=== PATIENT | female | born 1950 | race Caucasian/White ===

== ENCOUNTER 2019-12-12 16:00 | Outpatient (CLI) | payer MEDICARE, OTHER, SELFPAY ==
--- NOTE | ~2019-12-12 | MM_ITS ---
EXAMINATION: MM screening shannan BI w mitesh HISTORY: Screening mammogram TECHNIQUE: Craniocaudal and mediolateral oblique 3-D tomosynthesis images were obtained and synthetic 2-D images were generated. CAD analysis was submitted and interpreted. COMPARISON: 12/04/2018, 10/19/2017, 04/13/2016, 03/20/2015 bilateral digital screening mammogram examinatio ns BREAST PARENCHYMAL COMPOSITION: The breasts are heterogeneously dense, which may obscure small masses . FINDINGS: There is no evidence of suspicious mass, calcification, or architectural distortion to sugg est malignancy in either breast. There has been no suspicious interval change. IMPRESSION: 1. No mammographic evidence of malignancy. 2. Recommend routine screening mammography in one year. BI-RADS Category 1: Negative Reviewed, dictated and finalized at location A. 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
== END 2019-12-12 16:01 | disposition home or self-care (01) ==
LOC: ANHIMG 16:06
PROVIDERS: PCP Family Medicine; Visit Provider Student in an Organized Health Care Education/Training Program
DX: Z12.31 Encounter for screening mammogram for malignant neoplasm of breast (principal)
CPT/HCPCS: 77063; 77067

== ENCOUNTER 2020-11-10 17:02 | Emergency (ER) | payer MEDICARE, OTHER, SELFPAY ==
--- NOTE | 2020-11-10 17:15 | ED.FEMALEGU ---
HPI - Female Genitourinary General Chief complaint: Urogenital-Female Stated complaint: uti Source: patient Limitations: no limitations History of Present Illness HPI Narrative: The patient, a non-smoker/nondrinker, presents with lower urinary tract symptoms. Patient states she has 1/2-week history of urinary frequency, urgency, dysuria which has worsened and include visible hematuria today. No fever, vomiting/diarrhea, low back pain, vaginal discharge, prior surgeries except for ovarian cystectomy. Symptoms are mild most noticeable with micturition, and are like a prior UTI she has had years ago [but not as worse, as she had a day long ED visit for pyelonephritis years ago then]. Related Data Home Medications Medication Instructions Recorded Confirmed aspirin 81 mg tablet,delayed 81 mg PO DAILY 05/07/20 11/10/20 release multivitamin 1 tablet PO DAILY 05/13/20 11/10/20 Allergies Allergy/AdvReac Type Severity Reaction Status Date / Time No Known Allergies Allergy Verified 05/13/20 10:38 Review of Systems Review of Systems: Narrative: The patient has been informed that they may have pre-hypertension or Hypertension based on a BP reading in the department. I recommend that the patient call the primary care provider listed on their discharge instructions or a physician of their choice this week to arrange follow up for further evaluation of possible pre-hypertension or Hypertension General/Constitutional: No weight loss,fever Eyes: N0: Redness,discharge Ears/Nose/Throat: No: Epistaxis,ear discharge Respiratory: Denies: Hemoptysis Gastrointestinal: No Vomiting, Bleeding-rectal Skin: No Lumps, eruption Neurologic: No Focal Weakness,Sz Hematologic: Denies: Petechiae/Purpura Psychiatric: No: Suicida ideationl All Other Systems: Reviewed and Negative [facility] Past Medical History Medical History (Updated 11/10/20 @ 17:39 by Ortiz Negron MD) Anxiety History of vaginal delivery x 2 Hyperlipidemia Surgical History Surgical History (Updated 05/13/20 @ 11:08 by La Lakhani MD) History of dilation and curettage History of endometrial ablation History of hernia surgery Left spigelian hernia repair - 10/2012 Family History Family History Father Acute myocardial infarction Family history of diabetes mellitus in first degree relative Diabetes mellitus Patient's father is , Onset Age: 86 Family history of cardiovascular disease Mother Hypertension Family history of malignant neoplasm of kidney Family history of macular degeneration Family history of kidney disease Social History Social History Smoking status: Former smoker Second hand tobacco smoke exposure: No Smoking end date: 11/13/71 Alcohol intake: current Substance use: never Substance use type: does not use Gender identity (if verbalized by the patient): Female Comments At time of signature, agree with nursing past medical, surgical, social and family history. There is no relevant family history pertinent to the presenting complaint Exam Narrative: Exam Narrative: General Appearance: Well appearing, Conjunctiva clear Ears: External ear normal Nose: Normal nose Mouth/Throat: Normal appearing, supple Respiratory: Airway patent, No respiratory distress Cardiovascular: RRR Abdomen: Soft, Non-tender, No massess, No organomegaly (no rebound/ surgical signs), Hyperactive bowel sounds Musculoskeletal: Full ROM Skin: Warm, Dry Neurological: A&O x3,d, Normal affect Course Vital Signs Vital signs: Vital Signs Temperature 97.6 F 11/10/20 17:17 Pulse Rate 70 11/10/20 17:17 Respiratory Rate 18 11/10/20 17:17 Blood Pressure 185/90 H 11/10/20 17:17 Pulse Oximetry 100 11/10/20 17:17 Temperature 97.6 F 11/10/20 17:17 Pulse Rate 70 11/10/20 17:17 Respirator
[2020-11-10 17:17] VITALS: BP 185/90; PULSE 70; RESP 18; TEMP 36.4; O2SAT 100
[2020-11-10] MEDS: cefTRIAXone 1 GM VIAL 0.5 GM IM (17:30)
== END 2020-11-10 17:55 | disposition home or self-care (01) ==
PROVIDERS: Emergency Provider Emergency Medicine; PCP Family Medicine
DX: N30.01 Acute cystitis with hematuria (principal); Z87.891 Personal history of nicotine dependence; E78.5 Hyperlipidemia, unspecified; Z79.82 Long term (current) use of aspirin
CPT/HCPCS: 81003; 87077; 87086; 87088; 87186; 96372; 99213; G0463; J0696

== ENCOUNTER 2020-12-05 10:01 | Outpatient (CLI) | payer MEDICARE, OTHER, SELFPAY | END 2020-12-05 10:02 | disposition home or self-care (01) | PROVIDERS: PCP Family Medicine; Visit Provider Nurse Practitioner | DX: R19.7 Diarrhea, unspecified (principal) | CPT/HCPCS: 87045; 87046; 87427 ==

== ENCOUNTER → 2021-01-05 02:56 | Outpatient (CLI) | payer MEDICARE, OTHER, SELFPAY ==
[2021-01-05 20:35] LABS: SARS-CoV-2 RNA PCR Negative
== END ==
PROVIDERS: PCP Family Medicine; Visit Provider Internal Medicine Gastroenterology
DX: Z01.812 Encounter for preprocedural laboratory examination (principal); Z20.822 Contact with and (suspected) exposure to COVID-19
CPT/HCPCS: C9803; U0003; U0005

== ENCOUNTER 2021-01-08 01:04 | Day surgery (SDC) | payer MEDICARE, OTHER, SELFPAY ==
[2021-01-04 10:47] VITALS: BMI 24.3
--- NOTE | 2021-01-07 09:51 | WPDANESEPPF ---
Anes - Initial Pre Proc Eval Procedure: Operation Date: 01/08/21 12:30 Proposed Procedures p Colonoscopy - Kiran Denton MD Date/Time: 01/07/21 09:51 Surgeon: Kiran Denton MD Pre Op Diagnosis: C-Diff, Diarrhea Patient Data Age: 70 Gender: F Height: 1.61 m Weight: 63.3 kg Allergies Allergy/AdvReac Type Severity Reaction Status Date / Time No Known Allergies Allergy Verified 01/04/21 10:42 Home Medications Medication Instructions Recorded Confirmed Type aspirin 81 mg tablet,delayed 81 mg PO DAILY 05/07/20 01/04/21 History release multivitamin 1 tablet PO DAILY 05/13/20 01/04/21 History simvastatin 20 mg tablet 20 mg PO DAILY #90 tablet 07/21/20 01/04/21 Rx lactobacillus combination no.8 6,000 mmu cells PO DAILY 01/04/21 01/04/21 History [Adult Probiotic] sodium,potassium,mag sulfates 17.5 See Rx Instructions PO .COMPLEX 01/04/21 01/04/21 Rx gram-3.13 gram-1.6 gram oral soln #354 ml vancomycin 125 mg capsule 125 mg PO Q6H 10 Days #40 cap 01/04/21 01/04/21 Rx Patient hx anesthesia problems: none Family hx anesthesia problems: none PMFSH Past Medical History Medical History Anxiety History of vaginal delivery x 2 Hyperlipidemia Surgical History Surgical History History of dilation and curettage History of endometrial ablation History of hernia surgery Left spigelian hernia repair - 10/2012 Family History Family History Father Acute myocardial infarction Family history of diabetes mellitus in first degree relative Diabetes mellitus Patient's father is , Onset Age: 86 Family history of cardiovascular disease Mother Hypertension Family history of malignant neoplasm of kidney Family history of macular degeneration Family history of kidney disease Social History Social History Smoking packs per day: 0.5 Smoking cigarettes per day: 10.0 Years smoked: 1 Smoking pack-years: 0.50 Smoking status: Former smoker Second hand tobacco smoke exposure: No Smoking end date: 11/13/71 Alcohol intake: former Drinks per week: 7 Alcohol use details: NONE SINCE 11/08/2020 Substance use: never Substance use type: does not use Living arrangements: with family Gender identity (if verbalized by the patient): Female Spiritual care concerns: No Anes - Eval Final PreProcedure Day of Procedure 01/07/21 09:51 Patient weight: normal Heart: regular rate and rhythm Lungs: clear to auscultation and normal air movement Airway: Mallampati scale class II Neurological: alert and oriented Last oral intake: >/= 8 hours ASA classification: II Emergent: no Anesthetic plan: proceed Anesthesia type and monitoring: general GIVS and standard monitoring Informed Consent: The patient's anesthetic plan and its attendant risks and benefits were discussed with the patient/family/POA. Questions were solicited and answers provided to the satisfaction of the patient/family/POA.
[2021-01-08 11:44] VITALS: BP 136/83; PULSE 71; RESP 16; TEMP 36.6; O2SAT 99
[2021-01-08] MEDS: LACTATED RINGERS 1,000 ML 150 ML IV CONT (11:52)
--- NOTE | 2021-01-08 12:17 | PM.HPGS ---
History of Present Illness History of Present Illness Consent: Risks, benefits, and alternatives have been discussed and questions answered. Patient agrees to proceed with procedure. 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 Last colonoscopy 10 years ago. Review of Systems Constitutional: Constitutional: Denies headache(s) and Denies weakness Eyes: Eyes: Denies blurry vision ENT: Reports Normal hearing present, Denies headache(s) and Denies neck pain Cardiovascular: Cardiovascular: Denies chest pain and Denies dyspnea Respiratory: Respiratory: Denies dyspnea Gastrointestinal: Gastrointestinal: Reports no additional gastrointestinal complaints Genitourinary: Genitourinary: Denies dysuria Musculoskeletal: Musculoskeletal: Denies neck pain Integumentary/Breasts: Skin/Breast: Denies dry skin Neurologic: Reports Normal hearing present, Denies headache(s) and Denies weakness Psychiatric: Psychiatric: Denies anxiety Endocrine: Endocrine: Denies change in body appearance Hematologic/Lymphatic: Hematologic/Lymphatic: Denies easy bleeding Allergic/Immunologic: Allergic/Immunologic: Denies urticaria PMFSH Past Medical History Medical History Anxiety History of vaginal delivery x 2 Hyperlipidemia Surgical History Surgical History History of dilation and curettage History of endometrial ablation History of hernia surgery Left spigelian hernia repair - 10/2012 Family History Family History Father Acute myocardial infarction Family history of diabetes mellitus in first degree relative Diabetes mellitus Patient's father is , Onset Age: 86 Family history of cardiovascular disease Mother Hypertension Family history of malignant neoplasm of kidney Family history of macular degeneration Family history of kidney disease Social History Social History Smoking packs per day: 0.5 Smoking cigarettes per day: 10.0 Years smoked: 1 Smoking pack-years: 0.50 Smoking status: Former smoker Second hand tobacco smoke exposure: No Smoking end date: 11/13/71 Alcohol intake: former Drinks per week: 7 Alcohol use details: NONE SINCE 11/08/2020 Substance use: never Substance use type: does not use Living arrangements: with family Gender identity (if verbalized by the patient): Female Spiritual care concerns: No Meds Home Medications and Allergies Home Medications Medication Instructions Recorded Confirmed Type aspirin 81 mg tablet,delayed 81 mg PO DAILY 05/07/20 01/04/21 History release multivitamin 1 tablet PO DAILY 05/13/20 01/04/21 History simvastatin 20 mg tablet 20 mg PO DAILY #90 tablet 07/21/20 01/04/21 Rx lactobacillus combination no.8 6,000 mmu cells PO DAILY 01/04/21 01/04/21 History [Adult Probiotic] vancomycin 125 mg capsule 125 mg PO Q6H 10 Days #40 cap 01/04/21 01/08/21 Rx Allergies Allergy/AdvReac Type Severity Reaction Status Date / Time No Known Allergies Allergy Verified 01/08/21 11:43 Vital Signs Vital Signs - 24 hr 01/08/21 11:44 Temperature 97.8 F Pulse Rate 71 Respiratory Rate 16 Blood Pressure 136/83 Pulse Oximetry 99 Exam Const: General: comfortable and no acute distress HENMT: General nose exam: Normal nares present Eyes: General: appearance normal, both eyes and all related structures Neck: Neck: no JVD Resp: Auscultation: clear to auscultation bilaterally Cardio: Rate: regular rate Rhythm: regular rhythm GI: Inspection: non-distended GI Palp: Yes Soft to palpation Skin: General skin exam: normal color Neuro: General: gait normal Speech: normal speech Extrem: Gene
[2021-01-08 12:56] VITALS: BP 99/65; PULSE 70; RESP 18; O2SAT 99
[2021-01-08 13:06] VITALS: BP 116/78; PULSE 70; RESP 18; O2SAT 99
[2021-01-08 13:16] VITALS: BP 120/68; PULSE 67; RESP 16; O2SAT 99
== END 2021-01-08 13:30 | disposition home or self-care (01) ==
PROVIDERS: PCP Family Medicine; Visit Provider Internal Medicine Gastroenterology
PROC: 0DJD8ZZ Inspection of Lower Intestinal Tract, Via Natural or Artificial Opening Endoscopic (ICD-10-PCS; CPT 45378; principal; 2021-01-08 12:30)
DX: A49.8 Other bacterial infections of unspecified site (principal); K64.8 Other hemorrhoids; R19.7 Diarrhea, unspecified
CPT/HCPCS: 45378; J7120

== ENCOUNTER 2021-01-14 09:56 | Outpatient (CLI) | payer MEDICARE, OTHER, SELFPAY ==
--- NOTE | ~2021-01-14 | MM_ITS ---
EXAMINATION: MM screening shannan BI w mitesh HISTORY: Screening TECHNIQUE: Craniocaudal and mediolateral oblique 3-D tomosynthesis images were obtained and synthetic 2-D images were generated. CAD analysis was submitted and interpreted. COMPARISON: Comparison to multiple prior studies sequentially, with oldest reviewed study dated 06/2015. BREAST PARENCHYMAL COMPOSITION: The breasts are heterogeneously dense, which may obscure small masses . FINDINGS: There is no evidence of suspicious mass, calcification, or architectural distortion to sugg est malignancy in either breast. There has been no suspicious interval change. IMPRESSION: 1. No mammographic evidence of malignancy. 2. Recommend routine screening mammography in one year. BI-RADS Category 1: Negative Reviewed, dictated and finalized at location A. 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
== END 2021-01-14 09:57 | disposition home or self-care (01) ==
PROVIDERS: PCP Family Medicine; Visit Provider Student in an Organized Health Care Education/Training Program
DX: Z12.31 Encounter for screening mammogram for malignant neoplasm of breast (principal)
CPT/HCPCS: 77063; 77067

== ENCOUNTER 2021-01-21 09:59 | Outpatient (CLI) | payer MEDICARE, OTHER, SELFPAY ==
--- NOTE | ~2021-01-21 | DEXA_ITS ---
Bone Density Report Name: Maci Sykes Age: 70 Sex: Female Ethnicity: White Date of : 1950 Indication: postmenopausal; parental hip fracture; Referring Provider: Dinah Martinez Study: Bone densitometry was performed. Exam Date: January 21, 2021 Accession number: [id number] Bone Density: Region BMD T-score Z-score Classification AP Spine (L1, L2, L3) 1.325 2.8 4.9 Normal Femoral Neck (Left) 0.974 1.1 3.0 Normal Total Hip (Left) 1.023 0.7 2.2 Normal Total Hip Bilateral Avg 0.989 0.4 1.9 Normal Femoral Neck (Right) 0.914 0.6 2.4 Normal Total Hip (Right) 0.953 0.1 1.6 Normal World Health Organization criteria for BMD impression classify patients as: Normal (T-score at or above -1.0), Osteopenia (T-score between -1.0 and -2.5), or Osteoporosis (T-score at or below -2.5). 10-year Fracture Risk: FRAX not reported because: All T-scores for Spine Total, Hip Total, Femoral Neck at or above -1.0 Previous Exams: Region Exam Age BMD T-score BMD Change BMD Change Date g/cm2 vs Baseline vs Previous AP Spine(L1, L2, L3) 01/21/2021 70 1.325 2.8 0.067(5.3%)# 0.043(3.3%)* 03/20/2015 64 1.283 2.4 0.024(1.9%)# -0.001(-0.1%)# 07/15/2009 59 1.283 2.4 0.025(2.0%)* 0.025(2.0%)* 02/06/2004 53 1.258 2.2 Total Hip(Left) 01/21/2021 70 1.023 0.7 -0.071(-6.5%)# -0.011(-1.1%) 03/20/2015 64 1.034 0.8 -0.060(-5.5%)# -0.053(-4.9%)# 07/15/2009 59 1.087 1.2 -0.007(-0.6%) -0.007(-0.6%) 02/06/2004 53 1.094 1.2 Total Hip(Right) 01/21/2021 70 0.953 0.1 -0.029(-2.9%)# 0.000(0.0%) 03/20/2015 64 0.952 0.1 -0.029(-3.0%)# -0.044(-4.4%)# 07/15/2009 59 0.997 0.4 0.015(1.5%) 0.015(1.5%) 02/06/2004 53 0.981 0.3 *Denotes significance at 95% confidence level, LSC for AP Spine = 0.022 g/cm2, LSC for Total Hip = 0.027 g/cm2 Clinical Information Provided by Patient: Parent has had a hip fracture Has used the following medications: Vitamin D, Calcium Patient maximum height was 64 Menopause Age: 59 Drinks caffeinated beverages Onset of menses at age 13 Number of children 2 Impression: The patient has normal bone mass. The patient has risk factors, including: parental hip fracture. No significant bone loss was observed. Discussion: BONE DENSITY IS ABOVE THE MINIMUM DESIRABLE LEVEL AT ALL SKELETAL SITES TESTED. This patient?s bone mineral density is above the minimum desirable leve
== END 2021-01-21 10:00 | disposition home or self-care (01) ==
LOC: ANHIMG 10:01
PROVIDERS: PCP Family Medicine; Visit Provider Student in an Organized Health Care Education/Training Program
DX: Z78.0 Asymptomatic menopausal state (principal)
CPT/HCPCS: 77080

== ENCOUNTER 2021-07-21 12:59 | Outpatient (CLI) | payer MEDICARE, OTHER, SELFPAY | END 2021-07-21 13:00 | disposition home or self-care (01) | LOC: ANHAUDIO 13:01 | PROVIDERS: PCP Family Medicine; Visit Provider Nurse Practitioner | DX: H91.90 Unspecified hearing loss, unspecified ear (principal) | CPT/HCPCS: 92557; 92567 ==

== ENCOUNTER 2022-02-17 14:13 | Outpatient (CLI) | payer MEDICARE, OTHER, SELFPAY ==
--- NOTE | ~2022-02-17 | XR_ITS ---
XR hip LT min 2V DATE: 02/17/2022 14:36 INDICATION: Left hip pain. No injury. TECHNIQUE: AP and lateral views COMPARISON: CT pelvis FINDINGS: Again noted is a partially calcified left sided uterine fibroid. There is degenerative change at the pubic symphysis and sacroiliac joints. There is moderate joint space narrowing and prominent spurring at the left hip consistent with modera tely severe left hip osteoarthritis, with similar exchange suggested on the limited visualization of the right hip. No fracture, dislocation, avascular necrosis or bone destruction of the left hip is detected. IMPRESSION: Moderately severe bilateral hip osteoarthritis Reviewed, dictated and finalized at location A.
== END 2022-02-17 14:14 | disposition home or self-care (01) ==
PROVIDERS: PCP Nurse Practitioner; Visit Provider Nurse Practitioner
DX: M16.0 Bilateral primary osteoarthritis of hip (principal)
CPT/HCPCS: 73502

== ENCOUNTER 2022-05-25 11:00 | Outpatient (RCR) | payer MEDICARE, OTHER, SELFPAY ==
--- NOTE | 2022-05-04 14:42 | PTOPEVAL ---
PHYSICAL THERAPY EVALUATION AND PLAN OF CARE E Thank you for referring Maci Sykes to [facility].? The patient was evaluated for left hip pain. She was provided with HEP. Will follow up in 3 weeks. Please review, sign, date and return this plan of care JEANNE. I agree with and certify that the following plan of care is medically necessary. Referring Physician Date Attending Provider: Jade Hernández NP Diagnosis left hip and knee pain Onset 11/2021 Subjective Information States an initial symptoms in Query Text:As Reported By Patient/ the left knee when walking. Family She would wear a brace sleeve and that helped. Then she started to get some soreness in the left hip. States about 90% of the time the hip does not bother her. When she has pain she takes Aleve but otherwise does not alter how she moves or what she does during the day. She is very active in walking, gardening, basic conditioning. Self Report Pain Assessment Left Hip(s) Reported Pain Level 0 Greatest Pain Intensity 4 Patient Lower Extremity Range of Motion General Lower Extremity Range of Motion Gross Lower Extremity Range of Motion generally well maintained hip Comments internal rotation; bilateral VIKTOR are severely limited Lower Extremity Muscle Strength Testing Hip Strength Left Hip Flexion Strength 4+ Good + Hip Extension Strength 3- Fair - Hip Abduction Strength 3 Fair Right Hip Flexion Strength 4- Good - Hip Extension Strength 3 Fair Hip Abduction Strength 4- Good - Knee Strength Bilateral Knee Flexion Strength 4+ Good + Knee Extension Strength 4+ Good + Muscle Length Testing Zane Test Shortened Muscles Short (R) Iliopsoas,Short (L) Iliopsoas,Short (R) Rectus Femoris,Short (L) Rectus Femoris Piriformis w/Hip Flexion >90 Degrees (R) Severe Tightness,(L) Severe Tightness Palpation significant muscle tightness to left glutes Other Gait Observations mild antalgia with decreased left hip extension in stance phase PT Clinical Summary Maci is a 71 yo female presenting to outpatient physical therapy with mild and
--- NOTE | 2022-05-25 11:40 | PTOPEVAL ---
PHYSICAL THERAPY DISCHARGE NOTE Thank you for referring Maci Sykes to [facility]. Please review, sign, date and return this plan of care JEANNE. I agree with and certify that the following plan of care is medically necessary. Referring Physician Date Attending Provider: Jade Hernández NP Diagnosis left hip and knee pain Onset 11/2021 Subjective Information States an initial symptoms in Query Text:As Reported By Patient/ the left knee when walking. Family She would wear a brace sleeve and that helped. Then she started to get some soreness in the left hip. States about 90% of the time the hip does not bother her. When she has pain she takes Aleve but otherwise does not alter how she moves or what she does during the day. She is very active in walking, gardening, basic conditioning. Self Report Pain Assessment Left Hip(s) Reported Pain Level 0 Greatest Pain Intensity 4 Pain Score Pain Score 0: Self Report Interventions Used Interventions Used By Clinicians Exercise,Mobilization Pain Relief Interventions Used By Heat,Medication Patient Lower Extremity Muscle Strength Testing Hip Strength Left Hip Flexion Strength 4+ Good + Hip Extension Strength 3 Fair Hip Abduction Strength 3+ Fair + Right Hip Flexion Strength 4+ Good + Hip Extension Strength 3+ Fair + Hip Abduction Strength 4 Good Knee Strength Bilateral Knee Flexion Strength 5 Normal Knee Extension Strength 5 Normal Muscle Length Testing Muscle Length Testing Zane Test Shortened Muscles Short (R) Iliopsoas,Short (L) Iliopsoas,Short (R) Rectus Femoris,Short (L) Rectus Femoris Piriformis w/Hip Flexion >90 Degrees (R) Moderate Tightness,(L) Moderate Tightness Gait Assessment Gait Pattern Assessment Gait Pattern No Deviations/Normal PT Clinical Summary Maci is a 71 yo female presenting to outpatient physical therapy with mild and stable subacute left hip pain . Maci demonstrates a normal gait pattern today and demonstrates improved hip strength compared to initial
== END 2022-05-26 09:13 | disposition home or self-care (01) ==
LOC: ANHPT 11:00
PROVIDERS: PCP Nurse Practitioner; Visit Provider Nurse Practitioner
DX: M25.562 Pain in left knee (principal); M25.552 Pain in left hip
CPT/HCPCS: 97110; 97112; 97161

== ENCOUNTER 2022-11-09 15:53 | Outpatient (CLI) | payer MEDICARE, OTHER, SELFPAY ==
--- NOTE | ~2022-11-09 | MM_ITS ---
EXAMINATION: MM screening shannan BI w mitesh HISTORY: Screening mammogram TECHNIQUE: Craniocaudal and mediolateral oblique 3-D tomosynthesis images were obtained and synthetic 2-D images were generated. CAD analysis was submitted and interpreted. COMPARISON: 01/2021, 12/12/2019, 12/04/2018 bilateral screening mammogram examinations BREAST PARENCHYMAL COMPOSITION: The breasts are heterogeneously dense, which may obscure small masses . FINDINGS: There is no evidence of suspicious mass, calcification, or architectural distortion to sugg est malignancy in either breast. There has been no suspicious interval change. IMPRESSION: 1. No mammographic evidence of malignancy. 2. Recommend routine screening mammography in one year. BI-RADS Category 1: Negative Reviewed, dictated and finalized at location A. 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
== END 2022-11-09 15:54 | disposition home or self-care (01) ==
LOC: ANHIMG 15:55
PROVIDERS: PCP Family Medicine; Visit Provider Nurse Practitioner
DX: Z12.31 Encounter for screening mammogram for malignant neoplasm of breast (principal)
CPT/HCPCS: 77063; 77067

== ENCOUNTER 2023-01-13 09:40 | Outpatient (CLI) | payer MEDICARE, OTHER, SELFPAY ==
[2023-01-13 10:07] LABS: Basophils Percent Auto 0.5 % (0.2-1.2); Eosinophils Absolute Auto 0.1 K/mm3 (0-0.3); Eosinophils Percent Auto 2.4 % (0-4.4); Hematocrit 43.2 % (37.0-47.0); Hemoglobin 14.5 g/dL (12.0-15.0); Lymphocytes Absolute Auto 1.43 K/mm3 (0.9-3.2); Lymphocytes Percent Auto 34.5 % (18.3-44.2); Mean Corpuscular HGB Conc 33.6 g/dl (32-36); Mean Corpuscular Hemoglobin 32.2 pg (26-34); Mean Platelet Volume 8.7 fl (7.4-10.4); Monocytes Absolute Auto 0.4 K/mm3 (0.1-0.6); Monocytes Percent Auto 9.2 % (2.6-8.5); Neutrophils Absolute Auto 2.2 K/mm3 (1.3-6.7); Neutrophils Percent Auto 53.4 % (45.5-73.1); Platelet Count Result 219 k/mm3 (150-375); Red Cell Distribution Width 12.4 % (11.5-14.5); White Blood Count 4.2 K/mm3 (4.5-10.0)
[2023-01-13 10:21] LABS: Alanine Aminotransferase 15 U/L (6-35); Albumin Level 4.7 g/dL (3.5-5.1); Alkaline Phosphatase 54 U/L (38-126); Anion Gap 4 mmol/L (8-16); Aspartate Amino Transferase 33 U/L (14-36); Bilirubin,Total 0.5 mg/dL (0.2-1.3); Blood Urea Nitrogen 23 mg/dL (7-17); Calcium 9.3 mg/dL (8.4-10.2); Carbon Dioxide 31 mmol/L (22-30); Chloride 101 mmol/L (98-107); Cholesterol 186 mg/dL (0-200); Estimated Glomerular Filt Rate > 60; Glucose 98 mg/dL (65-110); HDL Direct 60 mg/dL; Potassium 4.1 mmol/L (3.4-5.0); Sodium 136 mmol/L (137-145); Triglycerides 99 mg/dL (<150)
[2023-01-13 10:32] LABS: LDL Cholesterol Direct 88 mg/dL
[2023-01-13 11:22] LABS: Vitamin D 25 Hydroxy 48.6 ng/mL
== END 2023-01-13 09:41 | disposition home or self-care (01) ==
PROVIDERS: PCP Family Medicine; Visit Provider Nurse Practitioner
DX: E78.5 Hyperlipidemia, unspecified (principal); E55.9 Vitamin D deficiency, unspecified
CPT/HCPCS: 36415; 80053; 80061; 82306; 85025

== ENCOUNTER 2023-11-09 08:39 | Outpatient (CLI) | payer MEDICARE, OTHER, SELFPAY ==
--- NOTE | ~2023-11-09 | MM_ITS ---
EXAMINATION: MM screening shannan BI w mitesh HISTORY: Screening mammogram TECHNIQUE: Craniocaudal and mediolateral oblique 3-D tomosynthesis images were obtained and synthetic 2-D images were generated. CAD analysis was submitted and interpreted. COMPARISON: 11/09/2022, 01/2021, 12/12/2021 bilateral screening mammogram examinations BREAST PARENCHYMAL COMPOSITION: The breasts are heterogeneously dense, which may obscure small masses . FINDINGS: There is no evidence of suspicious mass, calcification, or architectural distortion to sugg est malignancy in either breast. There has been no suspicious interval change. IMPRESSION: 1. No mammographic evidence of malignancy. 2. Recommend routine screening mammography in one year. BI-RADS Category 1: Negative Reviewed, dictated and finalized at location A. T RECORDER
--- NOTE | ~2023-11-09 | DEXA_ITS ---
Bone Density Report Name: GI ROSA Age: 73 Sex: Female Ethnicity: White Date of : 1950 Indication: postmenopausal; screening for osteoporosis; parental hip fracture; Referring Provider: KENNEDY COX Study: Bone densitometry was performed. Exam Date: November 09, 2023 Accession number: [id number] Bone Density: Region BMD T-score Z-score Classification AP Spine(L1-L4) 1.330 2.6 4.9 Normal Femoral Neck (Left) 0.960 1.0 3.0 Normal Total Hip (Left) 1.009 0.5 2.2 Normal Femoral Neck (Right) 0.846 0.0 2.0 Normal Total Hip (Right) 0.938 0.0 1.7 Normal Total Hip Mean 0.974 0.3 2.0 Normal World Health Organization criteria for BMD impression classify patients as: Normal (T-score at or above -1.0), Osteopenia (T-score between -1.0 and -2.5), or Osteoporosis (T-score at or below -2.5). 10-year Fracture Risk: FRAX not reported because: All T-scores for Spine Total, Hip Total, Femoral Neck at or above -1.0 Clinical Information Provided by Patient: Parent has had a hip fracture Has used the following medications: Vitamin D, Calcium Patient maximum height was 64 Menopause Age: 62 Drinks caffeinated beverages Onset of menses at age 13 Number of children 2 Missed period for more than 6 months in a row Impression: The patient has normal bone mass. The patient has risk factors, including: parental hip fracture. Discussion: BONE DENSITY IS ABOVE THE MINIMUM DESIRABLE LEVEL AT ALL SKELETAL SITES TESTED. This patient?s bone mineral density is above the minimum desirable level (T-score -1.0 or better) at all sites measured. The patient should follow a healthful lifestyle (good nutrition with adequate calcium and vitamin D, and appropriate weight-bearing exercise). Follow-Up: Consider repeating this study in 5 years or sooner if there is some new clinical indication. Reported by: LAURA on 11/09/2023 9:04:00 AM. Reviewed, dictated and finalized at location ANavi CACERES
== END 2023-11-09 08:40 | disposition home or self-care (01) ==
LOC: ANHIMG 08:40
PROVIDERS: PCP Family Medicine; Visit Provider Nurse Practitioner Family
DX: Z12.31 Encounter for screening mammogram for malignant neoplasm of breast (principal); Z78.0 Asymptomatic menopausal state
CPT/HCPCS: 77063; 77067; 77080

== ENCOUNTER 2024-02-02 09:17 | Outpatient (CLI) | payer MEDICARE, OTHER, SELFPAY ==
[2024-02-02 10:13] LABS: Basophils Percent Auto 0.7 % (0.2-1.2); Eosinophils Absolute Auto 0.1 K/mm3 (0-0.3); Eosinophils Percent Auto 2.9 % (0-4.4); Hematocrit 41.8 % (37.0-47.0); Hemoglobin 13.9 g/dL (12.0-15.0); Immature Granulocyte Absolute 0.02 K/mm3 (0.00-0.031); Immature Granulocyte Percent A 0.5 % (0-0.5); Lymphocytes Absolute Auto 1.48 K/mm3 (0.9-3.2); Lymphocytes Percent Auto 35.2 % (18.3-44.2); Mean Corpuscular HGB Conc 33.3 g/dl (32-36); Mean Corpuscular Hemoglobin 31.2 pg (26-34); Mean Corpuscular Volume 93.9 fl (80-100); Mean Platelet Volume 9.1 fl (7.4-10.4); Monocytes Absolute Auto 0.3 K/mm3 (0.1-0.6); Monocytes Percent Auto 7.6 % (2.6-8.5); Neutrophils Absolute Auto 2.2 K/mm3 (1.3-6.7); Neutrophils Percent Auto 53.1 % (45.5-73.1); Platelet Count Result 227 k/mm3 (150-375); Red Blood Count 4.45 M/mm3 (4.2-5.4); Red Cell Distribution Width 12.6 % (11.5-14.5); White Blood Count 4.2 K/mm3 (4.5-10.0)
[2024-02-02 10:22] LABS: Alanine Aminotransferase 13 U/L (6-35); Albumin Level 4.6 g/dL (3.5-5.1); Alkaline Phosphatase 59 U/L (38-126); Anion Gap 4 mmol/L (8-16); Aspartate Amino Transferase 27 U/L (14-36); Bilirubin,Total 0.7 mg/dL (0.2-1.3); Blood Urea Nitrogen 27 mg/dL (7-17); Calcium 9.5 mg/dL (8.4-10.2); Carbon Dioxide 26 mmol/L (22-30); Chloride 107 mmol/L (98-107); Cholesterol 225 mg/dL (0-200); Estimated Glomerular Filt Rate > 60; Glucose 97 mg/dL (65-110); HDL Direct 60 mg/dL; Potassium 3.9 mmol/L (3.4-5.0); Sodium 137 mmol/L (137-145); Triglycerides 107 mg/dL (<150)
[2024-02-02 10:33] LABS: LDL Cholesterol Direct 133 mg/dL
[2024-02-05 07:31] LABS: Vitamin D 1,25 (OH)2 Total 44 pg/mL (18-72); Vitamin D2 1,25 (OH)2 <8 pg/mL; Vitamin D3 1,25 (OH)2 44 pg/mL
== END 2024-02-02 09:18 | disposition home or self-care (01) ==
LOC: ANHLAB 09:20
PROVIDERS: PCP Family Medicine; Visit Provider Nurse Practitioner Family
DX: E55.9 Vitamin D deficiency, unspecified (principal); E78.5 Hyperlipidemia, unspecified
CPT/HCPCS: 36415; 80053; 80061; 82652; 85025

== ENCOUNTER 2025-03-04 09:07 | Outpatient (CLI) | payer MEDICARE, OTHER, SELFPAY ==
[2025-03-04 09:57] LABS: Alanine Aminotransferase 11 U/L (6-35); Albumin Level 4.4 g/dL (3.5-5.1); Alkaline Phosphatase 57 U/L (38-126); Anion Gap 8 mmol/L (4-12); Aspartate Amino Transferase 25 U/L (14-36); Bilirubin,Total 0.6 mg/dL (0.2-1.3); Blood Urea Nitrogen 21 mg/dL (7-17); Calcium 8.9 mg/dL (8.4-10.2); Carbon Dioxide 29 mmol/L (22-30); Chloride 102 mmol/L (98-107); Cholesterol 205 mg/dL (0-200); Estimated Glomerular Filt Rate > 60; Glucose 96 mg/dL (65-110); HDL Direct 58 mg/dL; Potassium 4.1 mmol/L (3.4-5.0); Sodium 139 mmol/L (137-145); Triglycerides 111 mg/dL (<150)
[2025-03-04 10:08] LABS: LDL Cholesterol Direct 97 mg/dL
== END 2025-03-04 09:08 | disposition home or self-care (01) ==
LOC: ANHLAB 09:08
PROVIDERS: PCP Student in an Organized Health Care Education/Training Program; Visit Provider Student in an Organized Health Care Education/Training Program
DX: E78.5 Hyperlipidemia, unspecified (principal)
CPT/HCPCS: 36415; 80053; 80061

== ENCOUNTER 2025-03-04 09:46 | Outpatient (CLI) | payer MEDICARE, OTHER, SELFPAY | END 2025-03-04 09:47 | disposition home or self-care (01) | LOC: ANHAUDIO 09:47 | PROVIDERS: PCP Student in an Organized Health Care Education/Training Program; Visit Provider Student in an Organized Health Care Education/Training Program | DX: H93.13 Tinnitus, bilateral (principal); H91.90 Unspecified hearing loss, unspecified ear | CPT/HCPCS: 92557; 92567 ==

== ENCOUNTER 2025-06-17 11:51 | Outpatient (CLI) | payer MEDICARE, OTHER, SELFPAY ==
--- NOTE | ~2025-06-17 | MM_ITS ---
EXAMINATION: MM screening shannan BI w mitesh HISTORY: Screening TECHNIQUE: Craniocaudal and mediolateral oblique 3-D tomosynthesis images were obtained and synthetic 2-D images were generated. CAD analysis was submitted and interpreted. COMPARISON: Comparison to multiple prior studies sequentially, with oldest reviewed study dated 12/04. BREAST PARENCHYMAL COMPOSITION: The breasts are heterogeneously dense, which may obscure small masses . FINDINGS: There is no evidence of suspicious mass, calcification, or architectural distortion to sug gest malignancy in either breast. IMPRESSION: 1. No mammographic evidence of malignancy. 2. Recommend routine screening mammography in one year. BI-RADS Category 1: Negative Reviewed, dictated and finalized at location B.
--- OUTSIDE RECORDS SUMMARY | 2025-06-17 12:02 | XMS_ITS | Continuity of Care Document ---
Author Name [facility] Organization [facility] Care Team Providers Care [employer] Teacher Name Role Phone [facility] Unavailable Unavailable Medications Combined list of outpatient medications from [facility] of Defense and Veterans Affairs facilities.Medications provided include 1) outpatient medications from the last 15 months, and 2) patient-reported medications. Medication Details Route Status Patient Instructions Prescription Expires Prescription Number Last Dispense Date Ordering Provider Order Date Order Qty Source estradiol 0.1 mg/g vaginal cream [42.5g] See Instruct raymond, # 42.5 g, 3 total refill(s ), Hard Stop Ordered 08/08/2025 5 2024 42.5 Ambulat ory Pharmac y oxyBUTYnin ER 5 mg/24 hour tablet = 1 tab(s), Oral, Daily, # 30 EA, 3 total refill(s ), Hard Stop Oral (given by mouth) Ordered 09/27/2025 5 2024 30.0 Ambulat ory Pharmac y simvastatin 20 mg tablet See Instruct raymond, # 90 EA, 2 total refill(s ), Acute Complet ed 10/30/2023 3 2022 90.0 Ambulat ory Pharmac y simvastatin 20 mg tablet 20 mg, Oral, Daily, # 90 EA, 1 total refill(s ), Hard Stop Oral (given by mouth) Discont inued 11/20/2024 4 2024 90.0 Ambulat ory Pharmac y simvastatin 20 mg tablet 20 mg, Oral, Daily, # 90 EA, 1 total refill(s ), Hard Stop Oral (given by mouth) Discont inued 05/13/2024 4 2023 90.0 Ambulat ory Pharmac y simvastatin 20 mg tablet See Instruct ions, # 90 EA, 3 total refill(s ), Hard Stop Ordered 11/11/2025 5 2024 90.0 Ambulat ory Pharmac y Immunizations Combined list of available immunizations from the Department of Defense and Veterans Affairs facilities. Immunization Series Date Given Administered By Site Reaction Lot Number CVX Code Drug [employer] Operator Status Comments Source influenza, injectable, quadrivalent- pf 2020 zzLef t Arm [id number] [employer]oSmith[employer] ne complet ed influenza , injectabl e, quadrival ent-pf 08/03/21 Given Ambulat ory Pharmac y Influenza, injectable, quadrivalent, preservative free 1 2020 Unknown, Provider [id number] [facility] (SKB) complet ed Influenza , injectabl e, quadrival ent, preservat uriah free DoD COVID Vaccine Moderna 2020 zzL t Arm [id number] complet ed COVID Vaccine Moderna 01/19/21 Given Ambulat ory Pharmac y SARS-COV-2 (COVID-19) vaccine, mRNA, spike protein, LNP, preservative free, 100 mcg or 50 mcg dose 1 2020 Unknown, Provider [id number] Modern[employer] (MOD) complet ed SARS-COV- 2 (COVID-19 ) vaccine, mRNA, spike protein, LNP, preservat uriah free, 100 mcg or 50 mcg dose DoD COVID Vaccine Moderna 2020 zzLef t Arm [id number] complet ed COVID Vaccine Moderna 12/22/20 Given Ambulat ory Pharmac y SARS-COV-2 (COVID-19) vaccine, mRNA, spike protein, LNP, preservative free, 100 mcg or 50 mcg dose 1 2020 Unknown, Provider [id number] Modern[employer] (MOD) complet ed SARS-COV- 2 (COVID-19 ) vaccine, mRNA, spike protein, LNP, preservat uriah free, 100 mcg or 50 mcg dose DoD Influenza vaccine, quadrivalent, adjuvanted 2019 ALUL, () Not Given Influenza vaccine, quadrival ent, adjuvante d DoD zoster vaccine, inactivated 2019 TRANSCR [id number] 187 GlaxoSmithKli ne complet ed zoster vaccine, inactivat ed 12/20/19 Given Ambulat ory Pharmac y zoster recombinant 2019 ALUL, () Not Given zoster recombina nt DoD zoster vaccine recombinant 1 2019 Unknown, Provider 187 [employer] (SKB) complet ed zoster vaccine recombina nt DoD zoster vaccine, inactivated 2018 zzLef t Arm [id number] [employer]oSmithKli ne complet ed zoster vaccine, inactivat ed 08/30/19 Given Ambulat ory Pharmac y zoster vaccine recombinant 1 2018 Unknown, Provider [id number] [employer] (SKB) complet ed zoster vaccine recombina nt DoD pneumococcal 13-valent conjugate (PCV13) 2018 zzLef t Arm [id number] [facility] complet ed pneumococ ladonna 13-valent conjugate (PCV13) 04/19/19 Given Ambulat ory Pharmac y pneumococcal conjugate vaccine, 13 valent 1 2018 Unknown, Provider [id number] [employer] ([facility]) complet ed pneumococ ladonna conjugate vaccine, 13 valent DoD Procedures Combined list of: 1) [facility] not all [place] non-surgical procedures are included; 2) All procedures from the Department of Defense facilities. Procedure Procedure Type Code Date Perfomer Comments Sourc e No data available for this section Ambulatory P harmacy Social History Combined list of available smoking, tobacco, and other social history from Department of Defense and Veterans Affairs facilities. Social History Type Response Date Comment Sourc e This section is an empty social history section. DoD Assessment and Plan Combined list of future care activities from Department of Defense and Veterans Affairs facilities (e.g., assessment and plan notes, appointments, orders, and referrals). Additional future care activities may be listed in the Plan of Care section. Result Assessment and Plan Date Source Assessment and Plan No data available for this section 06/17/2025 Ambulatory Pharmacy Functional Status Combined list of recent functional and cognitive assessments recorded at [facility] ([facility] Functional [place] Measurement (FIM) Scale: 1 = Total Assistance (Subject = 0% +), 2 = Maximal Assistance (Subject = 25% +), 3 = Moderate Assistance (Subject = 50% +), 4 = Minimal Assistance (Subject = 75% +), 5 = Supervision, 6 = Modified Lawrence (Device), 7 = Complete Lawrence (Timely, Safely). Assessment Date/Time Source Assessment Type Assessment Skill Assessment Score Assessment Details No data available for this section
== END 2025-06-17 11:52 | disposition home or self-care (01) ==
LOC: CHSIMG 11:54
PROVIDERS: PCP Student in an Organized Health Care Education/Training Program; Visit Provider Obstetrics & Gynecology
DX: Z12.31 Encounter for screening mammogram for malignant neoplasm of breast (principal)
CPT/HCPCS: 77063; 77067